=== PATIENT | male | born 1985 | race Two or more races ===

== ENCOUNTER 2021-09-07 06:51 | Emergency (ER) | payer SELFPAY ==
[~2021-09-07] VITALS: Ht 175.3 cm; Wt 74.8 kg
[2021-09-07] MEDS ORDERED: chlordiazePOXIDE HCL 25 MG CAP PO ONE ×2 (07:30→09:15)
[2021-09-07 07:49] VITALS: BP 127/80
[2021-09-07] MEDS ORDERED: CHL10C PO (09:21)
== END 2021-09-07 09:32 | disposition home or self-care (01) ==
LOC: ER 06:51
DX: F10.139 Alcohol abuse with withdrawal, unspecified (principal); Y90.8 Blood alcohol level of 240 mg/100 ml or more

== ENCOUNTER 2021-11-22 11:48 | Emergency (ER) | payer MEDICAID ==
[~2021-11-22] VITALS: Ht 175.3 cm; Wt 72.6 kg
[~2021-11-22 11:48] MED LIST: CHL10C PO
[2021-11-22 11:49] VITALS: BP 125/89
[2021-11-22] MEDS ORDERED: TOBR0.3S EACHEYE (12:52)
[2021-11-22] MEDS ORDERED: INDO50CA82 PO (12:52)
== END 2021-11-22 14:11 | disposition home or self-care (01) ==
LOC: ER 11:48
DX: G44.209 Tension-type headache, unspecified, not intractable (principal); H00.012 Hordeolum externum right lower eyelid
CPT/HCPCS: 70450

== ENCOUNTER 2023-03-03 19:04 | Emergency (ER) | payer SELFPAY ==
[~2023-03-03] VITALS: Ht 175.3 cm; Wt 80.0 kg
[~2023-03-03 19:04] MED LIST changes: +INDO50CA82 PO; +TOBR0.3S EACHEYE
[2023-03-03 19:43] LABS: Basophils # (auto) 0 10 ^3/uL (0-0.2); Basophils % (auto) 0.5 % (0.0-2.0); Eosinophils # (auto) 0.1 10 ^3/uL (0-0.8); Hematocrit 47.5 % (41.0-53.0); Hemoglobin 15.9 g/dL (13.5-17.5); Lymphocytes # (auto) 2.5 10 ^3/uL (0.4-5.4); Lymphocytes % (auto) 37.6 % (10.0-50.0); Mean Corpuscular Hemoglobin 31.1 pg (28.0-32.0); Mean Corpuscular Hgb Conc. 33.5 g/dL (32.0-36.0); Mean Corpuscular Volume 92.9 fL (80.0-100.0); Monocytes # (auto) 0.6 10 ^3/uL (0-1.3); Monocytes % (auto) 9.6 % (0.0-12.0); Neutrophils # (auto) 3.4 10 ^3/uL (1.6-8.6); Neutrophils % (auto) 51.3 % (37.0-80.0); Nucleated Red Blood Cells % 0.1 %; Red Blood Cells 5.12 10^6/uL (4.5-5.90); White Blood Cell 6.7 10^3/uL (4.4-10.8)
[2023-03-03 20:07] LABS: Alanine Aminotransferase 135 U/L (7-40); Albumin 4.7 g/dL (3.2-4.8); Alkaline Phosphatase 79 U/L (46-116); Anion Gap 12.9 (5-15); Aspartate Aminotransferase 112 U/L (13-40); BUN/Creatinine Ratio 7.7 (10.0-20.0); Bilirubin, Total 0.6 mg/dL (0.2-1.0); Blood Urea Nitrogen 7 mg/dL (9-23); Calcium 8.8 mg/dL (8.5-10.1); Carbon Dioxide 24.1 mmol/L (20-30); Chloride 101 mmol/L (98-107); Glucose 120 mg/dL (74-106); Potassium 3.3 mmol/L (3.5-5.1); Sodium 138 mmol/L (136-145); Total Protein 8.1 g/dL (5.7-8.2)
[2023-03-04] MEDS ORDERED: POTASSIUM EFFERVESENT TAB 25 MEQ PO ONE (02:45)
[2023-03-04 04:30] VITALS: BP 135/93; PULSE 67; RESP 18; TEMP 98.4; O2SAT 99
== END 2023-03-04 04:31 | disposition home or self-care (01) ==
LOC: ER 19:08
DX: R42 Dizziness and giddiness (principal); E87.6 Hypokalemia; R74.01 Elevation of levels of liver transaminase levels; F41.9 Anxiety disorder, unspecified; K21.9 Gastro-esophageal reflux disease without esophagitis; Z79.899 Other long term (current) drug therapy
CPT/HCPCS: 36415; 80053; 84484; 85025; 93005